=== PATIENT | female | born 1940 | race Caucasian/White ===

== ENCOUNTER 2016-05-14 10:57 | Emergency (ER) | payer OTHER ==
[2016-05-14 11:38] VITALS: TEMP 98.2; O2SAT 96
[2016-05-14 11:52] LABS: COLOR YELLOW; LEUKOCYTE ESTERASE,URINE NEGATIVE (NEGATIVE); NITRITE,URINE NEGATIVE (NEGATIVE); PH,URINE 6.5 (5.0-7.5)
[2016-05-14 12:05] LABS: % IMMATURE GRANULYOCYTES 0.2 % (0.0-1.1); ABSOLUTE IMMATURE GRANULOCYTES 0.01 10^3/uL (0.00-0.10); ADD DIFF? NO; ADD MORPH? NO; ADD SCAN? NO; ATYPICAL LYMPHOCYTE FLAG 10 (0-99); FRAGMENT RBC FLAG 0 (0-99); HEMATOCRIT 39.4 % (38.0-47.0); HEMOGLOBIN 13.5 g/dL (12.6-16.3); LEFT SHIFT FLG 0 (0-99); LIPEMIA HEMOLYSIS FLAG 90 (0-99); MEAN CELL HEMOGLOBIN 33.2 pg (27.9-34.1); MEAN CELL HEMOGLOBIN CONCENTR. 34.3 g/dL (32.4-36.7); MEAN CELL VOLUME 96.8 fL (81.5-99.8); MEAN PLATELET VOLUME 9.5 fL (8.7-11.7); PLATELET CLUMPS FLAG 0 (0-99); PLATELET COUNT 356 10^3/uL (150-400); RED BLOOD CELL COUNT 4.07 10^6/uL (4.18-5.33)
[2016-05-14 12:18] LABS: CARBON DIOXIDE 26 mEq/l (22-31); CHLORIDE 97 mEq/L (97-110); POTASSIUM 4.4 mEq/L (3.5-5.2); SODIUM 134 mEq/L (134-144)
[2016-05-14 12:19] LABS: ANION GAP 11 mEq/L (8-16); CALCIUM 9.3 mg/dL (8.5-10.4); CREATININE 0.7 mg/dL (0.6-1.0); GLOMERULAR FILTRATION RATE > 60; GLUCOSE 127 mg/dL (70-100)
[2016-05-14 12:30] VITALS: BP 162/66; PULSE 66; RESP 14
--- NOTE | 2016-05-14 13:25 | UCPHY ---
H & P Patient Type: Established Chief Complaint Nursing Narrative: numbness and tingling originating low back and radiating down both legs for 6 months, incontinent of stool and urine. Time Seen by Provider: 05/14/16 11:29 HPI/ROS: Yesterday this pt. had an episode of "tingling and numbness in (her) butt and saddle area". She reports that she has actually been having these symptoms intermittently for months now, the most recent was 3 weeks prior to yesterday. Currently she reports tenderness to her lumbar region but no significant pain. She does have lingering paresthesias to the buttock area. ROS: No recent trauma. No fevers or chills. No other constitutional symptoms. HEENT: No complaints pulmonary: No dyspnea or cough. Cardiovascular: No lightheadedness. No pallor to her lower extremities. No belly pain. GI: No recent diarrhea. : She reports mild urinary urgency recently but no dysuria. Incontinence yesterday as listed in HPI. Neuro: Paresthesias and saddle anesthesia yesterday as per HPI but no other lingering neuro symptoms currently except for paresthesias in the buttock. Integumentary: No rash. 10 point ROS is otherwise negative. Source: Patient Exam Limitations: No limitations - Personal History Current Tetanus Diphtheria and Acellular Pertussis (TDAP): Unsure - Medical/Surgical History PMH: Spinal stenosis with intermittent steroid injections by interventional Radiology at [facility]. Most recent episode was approximately a month ago per the patient's recollection. Xfp-ozjubqd-kibofljlu diabetes Hypertension Dyslipidemia GERD Hx Asthma: No Hx Chronic Respiratory Disease: No Hx Diabetes: Yes Hx Cardiac Disease: Yes Hx Renal Disease: No Hx Cirrhosis: No Hx Alcoholism: No Hx HIV/AIDS: No Hx Splenectomy or Spleen Trauma: No Other PMH: cardiac stent x 1, htn, hyperlipidemia, diabetes, hysterectomy, hypertension,spinal stenosis - Family History Significant Family History: No pertinent family hx - Social History Smoking Status: Former smoker Alcohol Use: None Drug Use: None - Physical Exam Exam: General Appearance: Pleasant 76-year-old female Alert, no distress. Eyes: Pupils equal and round no pallor or injection. ENT, Mouth: Mucous membranes moist. Respiratory: There are no retractions, lungs are clear to auscultation. Cardiovascular: Regular rate and rhythm. Gastrointestinal: Abdomen is soft and nontender, no masses, bowel sounds normal. Back: Patient has exquisite tenderness to the L4-5 region midline. No significant paraspinous tenderness. Neurological: Alert. The patient has diminished left patellar DTR compared to a 2+ right patellar DTRs. Achilles are difficult to determine due to lack of cooperation. The patient has poor short-term memory which is baseline for her attributable to dementia. Skin: Warm and dry, no rashes. Extremities are symmetrical, full range of motion. Psychiatric: Normal mood and affect. DIFFERENTIAL DIAGNOSIS: After history and physical exam differential diagnosis was considered for cauda equina, spinal stenosis, UTI, diarrhea, metabolic syndrome Constitutional: Initial Vital Signs Temperature (C) 36.8 C 05/14/16 11:35 Heart Rate 75 05/14/16 11:35 Respiratory Rate 16 05/14/16 11:35 Blood Pressure 198/82 H 05/14/16 11:35 O2 Sat (%) 96 05/14/16 11:35 O2 Delivery Mode Room Air Allergies/Adverse Reactions: dextroamphetamine sulfate [From Adderall] Allergy (Verified 05/14/16 11:32) tramadol Allergy (Verified 05/14/16 11:32) unknown abx Allergy (Uncoded 02/09/16 17:19) Home Medications: Medication Instructions Recorded Metformin HCl [Glucophage 1000 mg] BID 06/30/14 Metoprolol Tartrate [Lopressor 50 100 mg DAILY 06/30/14 mg (*)] Ranitidine HCl [Zantac] 150 mg PO DAILY 06/30/14 Losartan Potassium 100 mg DAILY 07/15/15 Simvastatin 20 mg PO DAILY 07/15/15 Glimepiride 05/14/16 Medical Decision Making - Diagnostics Imaging: Plain lumbar spine film: Significant anterior sublux/spondylolisthesis of L4 on 5 to my interpretation. DJD. ED Course/Re-evaluation: Discussion: This patient's presentation is concerning for potential cauda equina or significant intermittent spinal stenosis. She describes saline anesthesia yesterday with bowel and urine incontinence that has resolved. She has significant plain radiograph findings and I spoke with Dr. Drummond on-call for Neurosurgery who agrees with plan for acute MRI without contrast lumbar spine at the emergency department for further evaluation he will consult if needed. I spoke with Dr. santy paz-emergency physician at [facility] accepts patient for transfer. I recommended EMS transfer oral least family member to drive but the patient refuses. She will go by private vehicle. - Data Points Laboratory Results: Laboratory Results 05/14/16 12:00 05/14/16 12:00 05/14/16 05/14/16 05/14/16 12:00 12:00 11:50 WBC 5.91 10^3/uL 10^3/uL (3.80-9.50) RBC 4.07 10^6/uL L 10^6/uL (4.18-5.33) Hgb 13.5 g/dL g/dL (12.6-16.3) Hct 39.4 % % (38.0-47.0) MCV 96.8 fL fL (81.5-99.8) MCH 33.2 pg pg (27.9-34.1) MCHC 34.3 g/dL g/dL (32.4-36.7) RDW 13.0 % % (11.5-15.2) Plt Count 356 10^3/uL 10^3/uL (150-400) MPV 9.5 fL fL (8.7-11.7) Neut % (Auto) 44.5 % % (39.3-74.2) Lymph % (Auto) 43.1 % % (15.0-45.0) Tate % (Auto) 10.5 % % (4.5-13.0) Eos % (Auto) 1.2 % % (0.6-7.6) Baso % (Auto) 0.5 % % (0.3-1.7) Nucleat RBC Rel Count 0.0 % % (0.0-0.2) Absolute Neuts (auto) 2.63 10^3/uL 10^3/uL (1.70-6.50) Absolute Lymphs (auto) 2.55 10^3/uL 10^3/uL (1.00-3.00) Absolute Monos (auto) 0.62 10^3/uL 10^3/uL (0.30-0.80) Absolute Eos (auto) 0.07 10^3/uL 10^3/uL (0.03-0.40) Absolute Basos (auto) 0.03 10^3/uL 10^3/uL (0.02-0.10) Absolute Nucleated RBC 0.00 10^3/uL 10^3/uL (0-0.01) Immature Gran % 0.2 % % (0.0-1.1) Immature Gran # 0.01 10^3/uL 10^3/uL (0.00-0.10) Sodium 134 mEq/L mEq/L (134-144) Potassium 4.4 mEq/L mEq/L (3.5-5.2) Chloride 97 mEq/L mEq/L (97-110) Carbon Dioxide 26 mEq/l mEq/l (22-31) Anion Gap 11 mEq/L mEq/L (8-16) BUN 10 mg/dL mg/dL (7-23) Creatinine 0.7 mg/dL mg/dL (0.6-1.0) Estimated GFR > 60 Glucose 127 mg/dL H mg/dL (70-100) Calcium 9.3 mg/dL mg/dL (8.5-10.4) Urine Color YELLOW Urine Appearance CLEAR Urine pH 6.5 (5.0-7.5) Ur Specific [place] 1.010 (1.002-1.030) Urine Protein NEGATIVE (NEGATIVE) Urine Ketones NEGATIVE (NEGATIVE) Urine Blood NEGATIVE (NEGATIVE) Urine Nitrate NEGATIVE (NEGATIVE) Urine Bilirubin NEGATIVE (NEGATIVE) Urine Urobilinogen 0.2 EU EU (0.2-1.0) Ur Leukocyte Esterase NEGATIVE (NEGATIVE) Urine Glucose NEGATIVE (NEGATIVE) Departure - Departure Disposition: Acute Care Hospital [facility] Clinical Impression: Paresthesias, Spinal stenosis at L4-L5 level Condition: Fair Additional Instructions: Diagnosis: 1. Incontinence 2. Paresthesias 3. Spinal [id number] Plan: Go directly to [facility] Emergency Department for further evaluation and workup. Referrals: Jennifer Langston MD [Primary Care Provider] - As per Instructions Prescriptions: Lisinopril 5 mg PO DAILY #30 tablet - PQRS PQRS Measurement: 134: Depression screening and followup, MD-PHQ2 (12 years and older) Over the last 2 weeks, how often have you been bothered by any of the following problems? 1. Feeling down, depressed, or hopeless? 2. Little interest or pleasure in doing things? Patient answered no to both 1 and 2 130: Documentation of medications. Reviewed all patient medications, doses, route and frequency. 226: Do you smoke? [No.] 47: 65 and older: Advanced care planning. Patient designates surrogate decision maker as spouse. 51: 18 years old and older with diagnosis of COPD, spirometry performance. NA 52: 18 years old and older with COPD and symptoms of COPD or FEV1<60% predicted prescribed a B Agonist. NA
== END 2016-05-14 14:12 | disposition short-term general hospital (02) ==
LOC: CED 10:57
DX: R20.2 Paresthesia of skin (principal); M48.06 Spinal stenosis, lumbar region; M43.16 Spondylolisthesis, lumbar region; N39.42 Incontinence without sensory awareness; R15.9 Full incontinence of feces; I10 Essential (primary) hypertension; E78.5 Hyperlipidemia, unspecified; E11.9 Type 2 diabetes mellitus without complications; K21.9 Gastro-esophageal reflux disease without esophagitis; Z95.5 Presence of coronary angioplasty implant and graft; Z87.891 Personal history of nicotine dependence
CPT/HCPCS: 72100; G0463; 80048-PO; 81003-PO; 85025-PO; 99215-PO

== ENCOUNTER 2016-07-02 08:53 | Observation (INO) | payer OTHER ==
[2016-07-02] MEDS ORDERED: DIAZEPAM 5 MG TAB PO ONE (08:55)
[2016-07-02] MEDS ORDERED: FAMOTIDINE 20 MG TAB PO ONE (08:55)
[2016-07-02] MEDS ORDERED: ASPIRIN EC 325 MG TAB PO ONE ×2 (08:55→09:36)
[2016-07-02] MEDS ORDERED: NS 1,000 ML IV ONE (08:55)
[2016-07-02] MEDS ORDERED: diphenhydrAMINE 25 MG CAP PO ONE ×2 (08:55→09:36)
--- NOTE | 2016-07-02 09:24 | CPEKG ---
Heart Rate: 73 RR Interval: 822 P-R Interval: 156 QRSD Interval: 84 QT Interval: 372 QTC Interval: 410 P [place]: 74 QRS [place]: 35 T Wave [place]: 48 EKG Severity - NORMAL ECG - EKG Impression: SINUS RHYTHM Electronically Signed By: Keven Pham 03-Jul-2016 12:44:53
[2016-07-02] MEDS ORDERED: DIAZEPAM 5 MG TAB ONE (09:36)
[2016-07-02] MEDS ORDERED: FAMOTIDINE 20 MG TAB ONE (09:36)
[2016-07-02 10:03] LABS: INR 3.7 (0.83-1.16); PROTIME(PATIENT) 37.3 SEC (12.0-15.0)
[2016-07-02 10:10] LABS: ANION GAP 13 mEq/L (8-16); CALCIUM 9.9 mg/dL (8.5-10.4); CARBON DIOXIDE 21 mEq/l (22-31); CHLORIDE 101 mEq/L (97-110); CHOLESTEROL 139 mg/dL (140-220); CHOLESTEROL/HDL RATIO 2.48 RATIO (1.00-4.44); CREATININE 0.8 mg/dL (0.6-1.0); GLOMERULAR FILTRATION RATE > 60; GLUCOSE 150 mg/dL (70-100); HIGH DENSITY LIPOPROTEIN 56 mg/dL (40-85); LDL/HDL RATIO 0.93 RATIO (1.00-3.22); LOW DENSITY LIPOPROTEIN 52 mg/dL (80-100); MAGNESIUM 1.6 mg/dL (1.6-2.3); NON-HIGH DENSITY LIPOPROTEIN 83 mg/dL (90-129); POTASSIUM 5.1 mEq/L (3.5-5.2); SODIUM 135 mEq/L (134-144); TRIGLYCERIDE 155 mg/dL (35-135); VERY LOW DENSITY LIPOPROTEINS 31 mg/dL (8-25)
[2016-07-02 10:22] LABS: % IMMATURE GRANULYOCYTES 0.4 % (0.0-1.1); ABSOLUTE IMMATURE GRANULOCYTES 0.02 10^3/uL (0.00-0.10); ADD DIFF? NO; ADD MORPH? NO; ADD SCAN? NO; ATYPICAL LYMPHOCYTE FLAG 10 (0-99); FRAGMENT RBC FLAG 0 (0-99); HEMATOCRIT 37.2 % (38.0-47.0); HEMOGLOBIN 12.5 g/dL (12.6-16.3); LEFT SHIFT FLG 0 (0-99); LIPEMIA HEMOLYSIS FLAG 80 (0-99); MEAN CELL HEMOGLOBIN 32.3 pg (27.9-34.1); MEAN CELL HEMOGLOBIN CONCENTR. 33.6 g/dL (32.4-36.7); MEAN CELL VOLUME 96.1 fL (81.5-99.8); MEAN PLATELET VOLUME 9.5 fL (8.7-11.7); PLATELET CLUMPS FLAG 0 (0-99); PLATELET COUNT 289 10^3/uL (150-400); RED BLOOD CELL COUNT 3.87 10^6/uL (4.18-5.33); RED CELL DISTRIBUTION WIDTH 12.3 % (11.5-15.2)
[2016-07-02 11:15] LABS: APTT 28.3 SEC (23.0-38.0); INR 1.08 (0.83-1.16); PROTIME(PATIENT) 13.9 SEC (12.0-15.0)
[2016-07-02] MEDS ORDERED: LIDOCAINE 1% 30 ML SDV ONE (11:34)
[2016-07-02] MEDS ORDERED: IOPAMIDOL (ISOVUE 370) 100 ML BTL IV ONE ×3 (11:35→12:51)
[2016-07-02] MEDS ORDERED: fentaNYL 100 MCG/2 ML INJ ONE ×2 (11:35→12:54)
[2016-07-02] MEDS ORDERED: MIDAZOLAM 2 MG/2 ML VIAL ONE (11:35)
[2016-07-02] MEDS ORDERED: NITROGLYCERIN 1,500 MCG/15 ML VIAL MISC ONE (12:12)
[2016-07-02] MEDS ORDERED: BIVALIRUDIN 250 MG/5 ML VIAL IV ONE (12:12)
--- NOTE | 2016-07-02 12:32 | PDDXCAT ---
Diagnostic Cath Note - . Date: 07/02/16 Allopathic Doctor: Ankit Indication: High-risk criteria on noninvasive testing (choose option below) High-risk criteria on non-invasive testing: stress-induced large perfusion defect (particularly if anterior) - Procedure Access: right groin Procedure: left heart catheterization, coronary angiography, left ventriculogram - Materials Left Heart Cath size: 6F Left Heart Cath materials: standard multipack (JL4, JR4, pigtail) - Findings-Left Heart Catheterization LM: short, bifurcation into the LAD and LCX. No luminal irregularities LAD: Medium sized vessel with critical lesion to the mid portion of the stented region (>95%) and a second lesion, also within the confines of the stented portion of the LAD. There is a 50% lesion to the mid portion of the LAD (not associated with stent). There are no significant Diags associated with this vessel (2-3 smallish branch vessels). LCX: Medium sized vessel with a 40% lesion in the distal portion of the proximal vessel, just prior to LCX take off. One principal OM was noted, and continues with similar diameter as the LCX at take off. RCA: Medium to large sized vessel with supply to the PDA (dominant vessel). No luminal irregularities noted. EDP: 9 mm Hg LVEF: 50-55% Wall motion: Subtle mid anterior wall hypokinesis was noted. Complications: nonne Estimated blood loss: <50ml Assessment: 76 y/o female with CAD to the LAD with critical lesion to the mid and distal portion of the stent to the LAD. Lesions to the distal LAD (50%) and proximal LCX (40%) were also noted. Subtle mid anterior wall hypokinesis was noted with EF of 50-55%. Plan: Dr. Renetta Ariza to perform intervention to this lesion. Intervention: In stent critical lesion identified.
[2016-07-02] MEDS ORDERED: CLOPIDOGREL BISULFATE 75 MG TAB ONE (12:47)
[2016-07-02] MEDS ORDERED: PRASUGREL HCL 10 MG TAB ONE (13:05)
[2016-07-02] MEDS ORDERED: NITROGLYCERIN 0.4 MG BTL SL PRN (13:17)
[2016-07-02] MEDS ORDERED: ATROPINE SULFATE 1 MG/10 ML SYR IVP PRN (13:17)
[2016-07-02] MEDS ORDERED: PRASUGREL HCL 10 MG TAB PO ONE (13:17)
[2016-07-02] MEDS ORDERED: ONDANSETRON 4 MG/2 ML VIAL IVP PRN (13:17)
[2016-07-02] MEDS ORDERED: ACETAMINOPHEN 325 MG TAB PO PRN (13:17)
[2016-07-02] MEDS ORDERED: TEMAZEPAM 15 MG CAP PO PRN (13:17)
--- NOTE | 2016-07-02 13:28 | CPEKG ---
Heart Rate: 72 RR Interval: 833 P-R Interval: 168 QRSD Interval: 84 QT Interval: 396 QTC Interval: 434 P [place]: 59 QRS [place]: 20 T Wave [place]: 45 EKG Severity - NORMAL ECG - EKG Impression: SINUS RHYTHM Electronically Signed By: Keven Pham 03-Jul-2016 12:45:09
[2016-07-02] MEDS ORDERED: NS 1,000 ML IV SCH (13:30)
[2016-07-02] MEDS ORDERED: CALCIUM CARBONATE 500 MG CHEWABLE TAB PO PRN (15:48)
--- NOTE | 2016-07-02 18:11 | CPIP ---
[f rep st] INVASIVE CARDIAC PROCEDURE DATE OF PROCEDURE: 07/02/2016 PROCEDURE PERFORMED: Percutaneous coronary intervention of the left anterior descending. INDICATION: The patient is a 76-year-old woman who has a history of PCI of the LAD performed in 2008. She recently saw Dr. Pham for increasing symptoms of exercise intolerance similar to her original presentation. A nuclear stress test was notable for a moderate-sized territory of anterior wall ischemia. DETAILS OF PROCEDURE: Please refer to the diagnostic cardiac cath report performed by Dr. Keven Pham. Briefly, that study demonstrated normal left ventricular systolic function, high-grade restenosis up to 90% within a portion of the previously stented segment of the left anterior descending, and otherwise mild irregularities throughout the remainder of her coronary circulation. Based on the patient's clinical history and diagnostic angiograms , the decision was made to perform percutaneous coronary intervention. The patient received intravenous Angiomax. A 6-[place] JL 3.5 guide catheter was advanced to the left main. An Intuition guidewire was advanced to the apical portion of the left anterior descending. Predilatation of the target region within the previously stented segment of the LAD was performed using a 2.5 x 12 mm Emerge balloon. There was a focal spot within the proximal portion of the stented segment, which did not fully dilate. Therefore, additional predilatation inflations were performed using a 2.75 x 12 mm NC Emerge balloon. A 2.5 x 28 mm Synergy stent was advanced into position and was deployed at high pressure. The previously used 2.75 x 12 mm NC Emerge balloon was used for postdilatation of the proximal 2/3 of the new stent. Final angiograms demonstrated 0% residual stenosis and TANNER-3 flow. COMPLICATIONS: None. CONCLUSION: Successful percutaneous coronary intervention of the left anterior descending using a single drug-coated stent. /[id number]/MODL MTDD
[2016-07-02] MEDS: METOPROLOL TARTRATE 100 MG TAB PO SCH (20:38)
[2016-07-02] MEDS ORDERED: FAMOTIDINE 20 MG TAB PO SCH (21:00)
[2016-07-02] MEDS ORDERED: ATORVASTATIN CALCIUM 10 MG TAB PO SCH (21:00)
[2016-07-03 04:14] LABS: % IMMATURE GRANULYOCYTES 0.3 % (0.0-1.1); ABSOLUTE IMMATURE GRANULOCYTES 0.02 10^3/uL (0.00-0.10); ADD DIFF? NO; ADD MORPH? NO; ADD SCAN? NO; ATYPICAL LYMPHOCYTE FLAG 0 (0-99); FRAGMENT RBC FLAG 0 (0-99); HEMATOCRIT 34.8 % (38.0-47.0); HEMOGLOBIN 11.9 g/dL (12.6-16.3); LEFT SHIFT FLG 0 (0-99); LIPEMIA HEMOLYSIS FLAG 90 (0-99); MEAN CELL HEMOGLOBIN 32.8 pg (27.9-34.1); MEAN CELL HEMOGLOBIN CONCENTR. 34.2 g/dL (32.4-36.7); MEAN CELL VOLUME 95.9 fL (81.5-99.8); PLATELET CLUMPS FLAG 0 (0-99); PLATELET COUNT 294 10^3/uL (150-400); RED BLOOD CELL COUNT 3.63 10^6/uL (4.18-5.33); RED CELL DISTRIBUTION WIDTH 12.4 % (11.5-15.2)
[2016-07-03 04:28] LABS: ALBUMIN 3.3 g/dL (3.5-5.0); ANION GAP 9 mEq/L (8-16); ASPARTATE AMINOTRANSFERASE 17 IU/L (14-46); BILIRUBIN,TOTAL 0.5 mg/dL (0.1-1.4); CALCIUM 8.9 mg/dL (8.5-10.4); CARBON DIOXIDE 21 mEq/l (22-31); CHLORIDE 102 mEq/L (97-110); CREATININE 0.7 mg/dL (0.6-1.0); GLOMERULAR FILTRATION RATE > 60; GLUCOSE 156 mg/dL (70-100); LACTATE DEHYDROGENASE 341 IU/L (313-618); MAGNESIUM 1.6 mg/dL (1.6-2.3); POTASSIUM 4.5 mEq/L (3.5-5.2); SODIUM 132 mEq/L (134-144)
[2016-07-03 08:04] VITALS: BP 130/49; PULSE 75; RESP 17; TEMP 98; O2SAT 95
[2016-07-03] MEDS: METOPROLOL TARTRATE 100 MG TAB PO SCH (08:28)
--- NOTE | 2016-07-03 08:59 | CPEKG ---
Heart Rate: 80 RR Interval: 750 P-R Interval: 160 QRSD Interval: 82 QT Interval: 368 QTC Interval: 425 P [place]: 49 QRS [place]: 27 T Wave [place]: 45 EKG Severity - ABNORMAL ECG - EKG Impression: SINUS RHYTHM EKG Impression: CONSIDER ANTEROSEPTAL INFARCT Electronically Signed By: Keven Pham 05-Jul-2016 00:52:12
[2016-07-03] MEDS ORDERED: LOSARTAN POTASSIUM 50 MG TAB PO SCH (09:00)
[2016-07-03] MEDS ORDERED: GLIMEPIRIDE 1 MG TAB PO SCH (09:00)
[2016-07-03] MEDS ORDERED: PRASUGREL HCL 10 MG TAB PO SCH (09:00)
[2016-07-03] MEDS ORDERED: ASPIRIN EC 325 MG TAB PO SCH (09:00)
--- NOTE | 2016-07-03 13:49 | GDS ---
[f rep st] DISCHARGE SUMMARY ADMIT DIAGNOSES: 1. Abnormal nuclear stress test. 2. Coronary artery disease. 3. Hypertension. DISCHARGE DIAGNOSES: 1. Status post cardiac angiogram with percutaneous coronary intervention to the left anterior desce nding. 2. Coronary artery disease. 3. Hypertension. COURSE OF HOSPITALIZATION: This nice lady was seen by Dr. Keven Pham in clinic with recommendation to have a nuclear stress test. The nuclear stress test showed an area of ischemia, and she was set up for a cardiac angiogram for 07/02/2016. Dr. Keven Pham took her to the catheter finisher and inspector where he found blockage within the previous stent to the LAD. He then asked Dr. Kevin Ariza to intervene. Dr. Ariza placed a stent to the 90% lesion with good results. [facility] no [facility] pain or shortness of breath. At this time she currently is stable for discharge. MEDICATIONS: She has allergies to tramadol and dextroamphetamine sulfate. She will go home on simv astatin 20 mg at bedtime, Cozaar 100 mg daily, Amaryl 1 mg daily, Tums 500 mg daily as needed, aspir in 325 mg daily, Norvasc 25 mg daily, ranitidine 150 mg at bedtime, metformin 1000 mg twice daily (t his will be resumed on July 05 a.m. dose), Tylenol 650 mg every 4 hours as needed for pain (not t o exceed 3000 mg daily), Lopressor 100 mg twice daily, Nitrostat 0.4 mg sublingual as needed for briana n, and Effient 5 mg daily. DISCHARGE DAY PHYSICAL EXAMINATION: VITAL SIGNS: Blood pressure 130/49, heart rate 75 and regular, oxygen saturation 95% on room air, temperature 36.7. CARDIAC: Heart rate regular. No murmurs, rub s, or gallops. LUNGS: Sounds are clear to auscultation. No wheezes, rales, or rhonchi. Periphera l pulses are 2+ bilaterally. Right groin site is intact with no bleeding, induration, ecchymosis, o r tenderness. REPORTS: Interventional percutaneous coronary intervention dated 07/02/[address] Kevin Ariza. Indication: History of PCI to the LAD in 2008. She had a positive nuclear stress test indicating moderate size anterior wall ischemia. Cardiac angiogram was done by Dr. Keven Pham, finding a high grade restenoses up to 90% within the portion of previously stented segment of the left anterior de scending. Dr. Kevin Ariza then was asked to intervene, where he was able to successfully open th e area and place a Synergy stent within the previous stent of the LAD. Final angiograms showed 0% r esidual stenosis and TANNER-3 flow. CONCLUSION: Successful percutaneous coronary intervention of the left anterior descending using a s michael drug-coated Synergy stent. DISCHARGE PLAN: 1. She will follow up with Dr. Pham in 7-[address] [facility]. 2. She will participate in cardiac rehab program. 3. She will follow a low-fat, low-sodium diet. 4. Groin precautions were given to her written and verbally. No heavy lifting, pushing, OR pulling greater than 10 pounds for 7 days. No sitting in a tub of water for 7 days. She is instructed to keep her bowels soft, using stool softener as needed. Should groin site bleed, she is to go directl y to the emergency room and hold firm pressure to the area. At this time, she currently is stable for discharge. /[id number]/MODL
== END 2016-07-03 13:05 | disposition home or self-care (01) ==
LOC: FCATH 08:53 → F2W 12:38
PROVIDERS: ADMIT Internal Medicine Cardiovascular Disease; ATTEND Internal Medicine Interventional Cardiology
PROC: 027034Z Dilation of Coronary Artery, One Artery with Drug-eluting Intraluminal Device, Percutaneous Approach (ICD-10-PCS; principal; 2016-07-02)
PROC: B2151ZZ Fluoroscopy of Left Heart using Low Osmolar Contrast (ICD-10-PCS; 2016-07-02)
PROC: B2111ZZ Fluoroscopy of Multiple Coronary Arteries using Low Osmolar Contrast (ICD-10-PCS; 2016-07-02)
PROC: 4A023N7 Measurement of Cardiac Sampling and Pressure, Left Heart, Percutaneous Approach (ICD-10-PCS; 2016-07-02)
DX: T82.855A Stenosis of coronary artery stent, initial encounter (principal); I25.10 Atherosclerotic heart disease of native coronary artery without angina pectoris; I10 Essential (primary) hypertension; E11.9 Type 2 diabetes mellitus without complications; E78.5 Hyperlipidemia, unspecified
CPT/HCPCS: 93005; 93458; 97161; C1725; C1760; C1769; C1874; C1887; C9600; G0378; G8978; G8979; G8980; J0583; J1644; J2250; J3010; Q9967

== ENCOUNTER 2018-03-19 12:02 | Emergency (ER) | payer OTHER ==
--- NOTE | 2018-03-19 12:52 | CPEKG ---
Test Reason : OPEN Blood Pressure : / mmHG Vent. Rate : 062 BPM Atrial Rate : 062 BPM P-R Int : 139 ms QRS Dur : 088 ms QT Int : 419 ms P-R-T Axes : 011 019 036 degrees QTc Int : 426 ms Sinus rhythm Confirmed by Lane De Anda ([id number]) on 03/19/2018 12:51:30 PM Referred By: Confirmed By:Lane De Anda
[2018-03-19] MEDS ORDERED: CEPHALEXIN 500 MG CAP PO ONE (14:06)
--- NOTE | 2018-03-19 14:16 | EDPHY ---
H & P Stated Complaint: head injury, sent by Time Seen by Provider: 03/19/18 12:09 HPI/ROS: This patient fell and struck her left forehead in her garage on March 03 and saw her family practitioner thereafter-Dr. Langston without concerning findings on exam-considered a minor head injury without LOC. However the patient came back in today to see Dr. Langston complaining of word-finding difficulties and more difficulty with her memory than usual. Patient is on blood thinner for cardiac conditioning given this combination of head injury with memory difficulties, Dr. Langston is concerned about a potential subdural hemorrhage or other intracranial pathology and sent the patient across the [facility] to the emergency department for further workup. Patient notes urinary frequency recently but denies any other acute symptoms besides cited difficulty with memory and also some subtle visual changes intermittently described as " red and black blotches". ROS: Constitutional: No fevers or chills HEENT: No URI symptoms recently Neuro: No headache currently but she does have intermittent 2/10 left frontal headache since the fall with impact the similar area. She denies any focal numbness tingling weakness except baseline paresthesias or lower extremities that she attributes to her neuropathy. Pulmonary: No cough shortness of breath Cardiovascular: No heart palpitations or chest pain. No lower extremity swelling. GI: No abdominal pain, nausea or vomiting : Urinary frequency but no dysuria. She denies any flank pain. Integumentary: No skin rash. 10 point review of symptoms is performed and otherwise negative with exception of pertinent positives and negatives listed in HPI and ROS Source: Patient Exam Limitations: No limitations - Personal History Current Tetanus Diphtheria and Acellular Pertussis (TDAP): Yes - Medical/Surgical History Hx Asthma: No Hx Chronic Respiratory Disease: No Hx Diabetes: Yes Hx Cardiac Disease: Yes Hx Renal Disease: No Hx Cirrhosis: No Hx Alcoholism: No Hx HIV/AIDS: No Hx Splenectomy or Spleen Trauma: No Other PMH: cardiac stent x 2, htn, hyperlipidemia, diabetes, hysterectomy, hypertension,spinal stenosis - Family History Significant Family History: No pertinent family hx - Social History Smoking Status: Former smoker Alcohol Use: None Drug Use: None Additional Social History: Lives with her - Physical Exam Exam: Physical exam: Vital signs are normal General: Patient is in no acute distress. HEENT: Is no external evidence of trauma on exam. Nose atraumatic. Ears: Clear bilaterally with no hemotympanum. Oropharynx: No dental trauma or malocclusion. No intraoral lacerations. Eyes: Pupils are equal and reactive to light. Extraocular motions are intact. Optic fundi: Clear with no papilledema or hemorrhage. Visual acuity is 20/ 20 right eye, 20/20 OS and 20/20 both eyes Neck: Trachea is midline with no stridor. The patient has no midline neck tenderness and retains a full range of motion without increase in pain. Lungs: Clear to auscultation bilaterally Cardiac: Regular rate and rhythm no murmur gallop or rub. Chest: Nontender. Abdomen: Soft nontender no organomegaly Back: Nontender Extremities: Atraumatic Neuro: GCS of 15. Cranial nerves II through XII intact. Cerebellar exam is normal as judged by symmetric rapid hand movements bilaterally. No pronator drift. No sensory or motor deficits are appreciated. Initial differential diagnosis: Subdural hemorrhage, minor head injury, concussion, UTI, metabolic disarray, dementia Constitutional: Initial Vital Signs Temperature (C) 36.5 C 03/19/18 12:26 Heart Rate 68 03/19/18 12:26 Respiratory Rate 18 03/19/18 12:26 Blood Pressure 149/67 H 03/19/18 12:26 O2 Sat (%) 97 03/19/18 12:26 O2 Delivery Mode Room Air Allergies/Adverse Reactions: dextroamphetamine sulfate [From Adderall] Allergy (Verified 03/19/18 12:19) tramadol Allergy (Verified 03/19/18 12:19) unknown abx Allergy (Uncoded 03/19/18 12:19) Home Medications: Medication Instructions Recorded Losartan Potassium [Cozaar 50 mg 100 mg PO DAILY 07/15/15 (*)] Simvastatin [Zocor] 20 mg PO HS 07/15/15 Glimepiride [Amaryl 1 MG (*)] 1 mg PO DAILY 05/14/16 Aspirin [Aspirin 325 mg (*)] 325 mg PO BID 07/02/16 Calcium Carbonate [Tums 500MG (*)] 500 mg PO DAILY PRN 07/02/16 Herbals/Supplements -Info Only 1 ea PO DAILY 07/02/16 Ranitidine HCl [Zantac] 150 mg PO HS 07/02/16 amLODIPine BESYLATE [Norvasc 2.5 2.5 mg PO DAILY 07/02/16 mg (*)] metFORMIN HCL [Glucophage 500 mg 1,000 mg PO BIDMEAL 07/02/16 (*)] Acetaminophen [Tylenol 325mg (*)] 650 mg PO Q4HRS PRN #0 tab 07/03/16 Aspirin EC [Aspirin EC 325 mg (*)] 325 mg PO DAILY #0 tab 07/03/16 Nitroglycerin [Nitrostat 0.4 mg 0.4 mg SL ONCE PRN #1 btl 07/03/16 (*)] Cephalexin [Keflex (*)] 500 mg PO TID #21 cap 03/19/18 Metoprolol Succinate 03/19/18 RESTORIL 03/19/18 Medical Decision Making - Diagnostics EKG Interpretation: 12 lead EKG performed at 12:46 p.m. -indication chest pain 2 nights ago with history of coronary disease- Reveals sinus rhythm at 62 Intervals: Normal throughout Parks: Normal throughout ST segments: Normal throughout Imaging: Discussed imaging studies w/ tester rocket engine Radiologist (I also reviewed the CT images myself after speak with Dr. Peraza) ED Course/Re-evaluation: Patient remained stable a pop, pleasant cooperative while in the emergency department. She is treated with Keflex antibiotic for UTI Labs: Normal CBC, normal basic metabolic panel, urine POC dip reveals leukocytes and positive nitrites sent to the lab at the hospital for further evaluation Discussion: Patient with memory difficulties that are likely attributable to UTI perhaps in combination with minor head injury recently. We ruled out intracranial bleed, subdural hemorrhage or other, no evidence of significant infectious etiology other than UTI. Will plan to send her home on Keflex antibiotic with follow up with primary care physician for any ongoing symptoms. - Data Points Laboratory Results: Laboratory Results 03/19/18 13:20 Medications Given: Discontinued Medications Cephalexin HCl (Keflex) 500 mg PO EDNOW ONE PRN Reason: Protocol Stop: 03/19/18 14:07 Last Admin: 03/19/18 14:37 Dose: 500 mg Point of Care Test Results: Chemistry 03/19/18 03/19/18 13:32 13:31 POC Sodium 140 mEq/L mEq/L (135-145) POC Potassium 2.8 mEq/L L mEq/L (3.3-5.0) POC Chloride 99.0 mEq/L mEq/L (97-110) POC Total CO2 25 mEq/L mEq/L (22-31) POC BUN 9 mg/dL mg/dL (7-23) POC Creatinine 1.2 mg/dL H mg/dL (0.6-1.0) POC Glucose 114 mg/dL H mg/dL (70-100) POC Calcium 9.2 mg/dL mg/dL (8.5-10.4) POC Troponin I 0.00 ng/mL ng/mL (0.00-0.08) Urine Dip Collection Date 03/19/18 Collection Time 13:17 Specific [place] (1.002-1.030) 1.020 PH (5.0-7.5) 5.5 Leukocytes (Negative) 1+ Nitrites (Negative) Positive Protein (Negative) Negative Glucose (Negative) Negative Ketones (Negative) Negative Urobilnogen (0.2-1.0 EU) 0.2 Bilirubin (Negative) Negative Blood (Negative) Negative Departure - Departure Disposition: Home, Routine, Self-Care Clinical Impression: Memory difficulties, Minor head injury without loss of consciousness, Urinary tract infection Condition: Good Instructions: Urinary Tract Infection in Women (ED) Additional Instructions: Diagnosis: Minor head injury with no loss of consciousness 2. Memory difficulties 3. Urinary tract infection Plan: Keflex antibiotic Follow up primary care physician for any ongoing symptoms Return for any significant worsening despite treatment plan Referrals: Jennifer Langston MD [Primary Care Provider] - As per Instructions Prescriptions: Cephalexin [Keflex (*)] 500 mg PO TID #21 cap
[2018-03-19 14:27] LABS: PLATELET COUNT 278 10^3/uL (150-400)
[2018-03-19 14:39] VITALS: BP 146/54
== END 2018-03-19 14:41 | disposition home or self-care (01) ==
LOC: CED 12:02
DX: S09.90XD Unspecified injury of head, subsequent encounter (principal); R41.3 Other amnesia; N39.0 Urinary tract infection, site not specified; W22.8XXD Striking against or struck by other objects, subsequent encounter; Y92.008 Other place in unspecified non-institutional (private) residence as the place of occurrence of the external cause; Y93.9 Activity, unspecified; Y99.9 Unspecified external cause status; Z87.891 Personal history of nicotine dependence
CPT/HCPCS: 70450-PO; 71046-PO; 80048-PO; 84484-PO